=== PATIENT | male | born 1955 | race Caucasian/White ===

== ENCOUNTER 2016-11-25 19:07 | Inpatient (IN) ==
[2016-11-25] MEDS ORDERED: 0.9 % Sodium Chloride 1,000 ML IVC ONE (19:37)
--- NOTE | 2016-11-25 19:54 | Emergency Department Note ---
Disposition Clinical Impression: Seizure Fall Qualifiers: Encounter type: initial encounter Qualified Code(s): W19.XXXA - Unspecified fall, initial encounter Traumatic brain injury Qualifiers: Encounter type: subsequent encounter Loss of consciousness presence/duration: without LOC Qualified Code(s): S06.9X0D - Unspecified intracranial injury without loss of consciousness, subsequent encounter Altered mental status Qualifiers: Altered mental status type: stupor Qualified Code(s): R40.1 - Stupor UTI (urinary tract infection) Qualifiers: Urinary tract infection type: acute cystitis Hematuria presence: without hematuria Qualified Code(s): N30.00 - Acute cystitis without hematuria Disposition: Admitted As Inpatient Condition: Good Referrals: NO,PCP [Non-Partnered Physician] - Forms: ED Satisfaction Letter Time of Disposition: 22:24 Altered Mental Status HPI - General Chief Complaint: ED Altered Mental Status Stated Complaint: Decreased LOC Time Seen by Provider: 11/25/16 19:34 Source: EMS Mode of arrival: EMS Limitations: altered mental status Nursing Notes Reviewed: Yes Vital Signs Reviewed: Yes - History of Present Illness HPI Narrative: Patient presents emergency room by EMS for evaluation of altered mentation. Decreased responsiveness his ECF today. Family was concerned because he had focal seizure like activities never had seizures before. Otherwise patient is no distress at this point in presentation stable vital signs on arrival. EMS had no complications during transport. Blood pressure heart rate and blood glucose were all normal. Patient has fallen several times in the last week according to the EMS transportation MD complaint: altered mental status Onset (ago): week(s) Timing confirmed by: family member Pain Severity: mild Consistency of Symptoms: waxing and waning Context: unknown Associated symptoms: Reports: denies other symptoms - Related Data Home Medications Medication Instructions Recorded Confirmed Amantadine [Symmetrel] 100 mg PO BID 02/24/16 11/25/16 Aspirin [Lo-Dose Aspirin EC] 81 mg PO DAILY 02/24/16 11/25/16 Atomoxetine [Strattera] 40 mg PO DAILY 02/24/16 11/25/16 Divalproex (12 HR) [Depakote (12 500 mg PO BID 02/24/16 11/25/16 HR)] Docusate [Colace] 100 mg PO DAILY 02/24/16 11/25/16 Donepezil [Aricept] 10 mg PO HS 02/24/16 11/25/16 LevETIRAcetam [Roweepra] 500 mg PO Q12H 02/24/16 11/25/16 Lisinopril [Zestril] 5 mg PO DAILY 02/24/16 11/25/16 Metformin HCl [Glucophage] 1,000 mg PO BID 02/24/16 11/25/16 Pioglitazone HCl [Actos] 30 mg PO DAILY 02/24/16 11/25/16 Simvastatin [Zocor] 40 mg PO QPM 02/24/16 11/25/16 Venlafaxine HCl [Venlafaxine HCl 150 mg PO DAILY 02/24/16 11/25/16 ER] clonazePAM [Klonopin] 0.5 mg PO BID 02/24/16 11/25/16 Acetaminophen [Tylenol] 650 mg PO Q6HR PRN 11/25/16 11/25/16 Calcium Carbonate/Vitamin D3 1 each PO TID 11/25/16 11/25/16 [Calcium 600 + Vit D Softgel] Ciprofloxacin [Cipro] 500 mg PO BID 11/25/16 11/25/16 Glucagon,Human Recombinant 1 mg IJ AD PRN MDD 2MG 11/25/16 11/25/16 [Glucagon Emergency Kit] HYDROcodone/Acet 5/325 mg [[place] 1 tab PO Q4-6H PRN 11/25/16 11/25/16 5-325 mg] Linagliptin [Tradjenta] 5 mg PO DAILY 11/25/16 11/25/16 Linezolid [Zyvox] 600 mg PO BID 11/25/16 11/25/16 Magnesium Hydroxide [Milk of 30 ml PO DAILY PRN 11/25/16 11/25/16 Magnesia] Na Phos,M-B/Na Phos,Di-Ba [Fleet 230 ml RC Q48H PRN 11/25/16 11/25/16 Enema Extra] Zolpidem Tartrate 5 mg PO HS 11/25/16 11/25/16 levoFLOXacin [Levofloxacin] 500 mg PO DAILY 11/25/16 11/25/16 Allergies Allergy/AdvReac Type Severity Reaction Status Date / Time Penicillins Allergy Anaphylaxis Verified 11/25/16 21:11 PAPER TAPE AdvReac See Uncoded 11/25/16 21:11 Comments All systems ED: reviewed and negative except as stated. Review of Systems: As Per HPI Limitations: ROS unobtainable due to patients medical condition Eyes: Denies: eye discharge Respiratory: Denies: cough Past Medical History - Past Medical History Attestation: Yes The following information was validated with the patient. Source: patient Medical history: Reports: dementia, diabetes, hyperlipidemia, hypertension, other Surgical history: Reports: no surgical history Psychiatric history: Reports: anxiety, depression, other - Social History Smoking Status: Former smoker Smokeless Tobacco Status: No Alcohol use: Reports: none Drug use: Reports: none Physical Exam - General Limitations: altered mental status General appearance: other - Head Head exam: atraumatic, normocephalic, normal inspection - ENT ENT exam: normal exam, normal oropharynx - Neck Neck exam: Present: normal inspection - Chest Chest inspection: Present: normal inspection, symmetric chest wall rise - Respiratory Respiratory exam: Present: normal lung sounds bilaterally. Absent: respiratory distress, wheezes, accessory muscle use - Cardiovascular Cardiovascular exam: Present: regular rate, normal rhythm, normal heart sounds - Abdominal Exam Abdominal exam: Present: soft, Non-Tender, normal bowel sounds. Absent: tenderness, distention, guarding, rebound, rigidity, Mendez's sign, Rovsing's sign, tenderness at McBurney's Point - Extremities Exam Extremities exam: Present: normal inspection, full ROM, normal capillary refill. Absent: tenderness - Neurological Exam Neurological exam: Present: alert, oriented X3 - Skin Skin exam: Present: warm, dry, intact, normal color Course Course Narrative: Patient seen and examined the time of arrival by EMS. See history of present illness. 60-year-old male presents from [facility] for evaluation of altered mental status, somnolence, seizure-like activity. Gentleman is in the long term secondary to traumatic brain injury. Vital signs reviewed on presentation are stable. Accu-Chek in transit was normal. Patient family is at the bedside now and described normal presentation except for somnolence and withdrawn presentation this time. According to the nursing facility they were describing grandma-like seizure. Patient has no seizure history this point despite to traumatic brain injuries. On my physical exam on presentation head is atraumatic type was recorded on reactive to light. Oropharynx is patent but slightly dry mucous membranes. Trachea is midline no stridor no trismus. Lungs are clear heart is regular abdomen is soft. Patient does withdraw to pain but is somnolent and does not follow commands directly. Abdomen is soft there is tenderness noted suprapubically. It was of a Rosenthal catheter in place secondary to urinary incontinence. Patient does withdrawal to pain in the lower extremities appears to have appropriate sensation. No signs of visible trauma this time over the posterior aspect of the torso and lower back. He has a bruise to the right upper extremity but no gross deformity or injury noted at this time. Patient was CT imaging of the head and neck as well as chest x-ray and CT the abdomen along with fluids pain medication etiology medication given at this time. Vital signs are otherwise been stable. Labs including CBC chemistry liver function testing lipase as well as urinalysis to be collected this time. Disposition pending treatment course - Reevaluation(s) Reevaluation #1: Patient had active grand mal seizure here in the emergency room at this time. Family is at the bedside. On 1 mg Ativan given at this point and the seizure resolved. Family called other family members to discuss if any seizure history as noted. According to them he had several episodes of seizure-like activity directly after his traumatic brain injury. Based on the symptoms that now I think these having breakthrough seizure secondary to his urinary tract infection. Ativan to be given as needed. Loading dose of Keppra ordered. First dose of Rocephin to be given at this time. Admission process to be completely for urinary tract infection causing seizure-like activity. Time: 22:22 Reevaluation #2: Patient reviewed and discussed with the hospitalist Dr. Bell.. Reviewed the presentation symptoms medical history as well as intervention here. Hepatitis at the patient for definitive management. No other recommendations at this time. Patient will be observed in the emergency room and admission process was completed. Patient is clinically stable at this time Time: 23:22 Vital Signs Temperature 97.6 F 11/25/16 19:09 Pulse Rate 94 11/25/16 19:09 Respiratory Rate 18 11/25/16 19:09 Blood Pressure 169/90 11/25/16 19:09 O2 Sat by Pulse Oximetry 93 11/25/16 19:09 Temperature 97.6 F 11/25/16 19:09 Pulse Rate 81 11/25/16 22:49 Respiratory Rate 18 11/25/16 22:49 Blood Pressure 139/74 07/27/17 22:49 O2 Sat by Pulse Oximetry 99 11/25/16 22:49 Oxygen Delivery Oxygen Delivery Room Air Altered Mental Status - MDM Narrative Medical decision making narrative: Confusion, somnolence - Medical Records Medical records reviewed: Yes I reviewed the patient's medical records. - Lab Data Lab results reviewed: Yes I reviewed the patient's lab results. Result diagrams: 11/25/16 20:06 11/25/16 20:06 Lab Results 11/25/16 11/25/16 11/25/16 Range/Units 20:06 20:06 20:06 WBC 12.2 H (4.3-11.1) K/mcL RBC 5.34 (4.19-5.50) M/mcL Hgb 14.2 (12.9-16.9) g/dL Hct 43.2 (37.5-50.1) % MCV 80.9 L (83.0-100.0) fL MCH 26.6 L (28.0-33.3) pg MCHC 32.9 (31.6-35.5) g/dL RDW 14.0 (11.5-14.5) % Plt Count 230 (140-400) K/mcL MPV 9.4 (9.4-12.4) fL Immature Gran % 1.3 (0-4) % Seg Neutrophils % 87.6 % Lymphocytes % 5.9 % Monocytes % 4.0 % Eosinophils % 0.7 % Basophils % 0.5 % Neutrophils # 10.7 H (1.6-8.9) K/mcL Lymphocytes # 0.7 (0.6-4.6) K/mcL Monocytes # 0.5 (0.0-1.3) K/mcL Eosinophils # 0.1 (0.0-0.6) K/mcL Basophils # 0.1 (0.0-0.2) K/mcL PT 12.9 H (9.4-12.1) Seconds INR 1.2 APTT 27.7 (26.0-36.0) Seconds Sodium 130 L (136-145) mEq/L Potassium 4.0 (3.5-4.5) mEq/L Chloride 98 (98-109) mEq/L Carbon Dioxide 21 (19-29) mEq/L BUN 15 (8-26) mg/dL Creatinine 0.82 (0.72-1.25) mg/dL Est GFR ( Amer) > 60 (> 60) Est GFR (Non-Af Amer) > 60 (> 60) BUN/Creatinine Ratio 18 (6-26) Glucose 161 H (70-99) mg/dL Calculated Osmolality 274 L (280-300) Calcium 9.2 (8.6-10.8) mg/dL Total Bilirubin 0.3 (0.2-1.2) mg/dL Direct Bilirubin 0.1 (0.0-0.5) mg/dL Indirect Bilirubin 0.2 (0.0-1.2) mg/dL AST 10 (5-34) Units/L ALT 8 (0-55) Units/L Alkaline Phosphatase 52 (38-126) Units/L Troponin I (0-0.03) ng/mL Serum Total Protein 7.4 (6.0-8.3) g/dL Albumin 4.0 (3.5-5.0) g/dL Globulin 3.4 (2.4-3.5) g/dL Albumin/Globulin Ratio 1.2 (1.1-2.2) TSH 3.470 (0.350-4.840) mcIU/mL Urine Color (Yellow) Urine Clarity (Clear) Urine pH (5.0-8.0) pH Units Ur Specific [place] (1.010-1.025) Urine Protein (Neg-Trace) mg/dL Urine Glucose (UA) (Normal) mg/dL Urine Ketones (Negative) mg/dL Urine Blood (Negative) Urine Nitrite (Negative) Urine Bilirubin (Negative) Urine Urobilinogen (Normal) mg/dL Ur Leukocyte Esterase (Negative) Urine Microscopic RBC (0-3) per hpf Urine Microscopic WBC (0-3) per hpf Ur Squamous Epith Cells (None-Few) per lpf Urine Bacteria (None-Few) per hpf Hyaline Casts (None-Few) per lpf Ur Culture Indicated? (NO) Salicylates < 5.0 L (15-30) mg/dL Urine Opiates Screen (Vaqdcq=455) ng/mL Acetaminophen 1.0 L (10-30) mcg/mL Ur Barbiturates Screen ([place]=533) ng/mL Ur Phencyclidine Scrn (Cutoff=25) ng/mL Ur Amphetamines Screen (Zvzztf=8165) ng/mL U Benzodiazepines Scrn (Pcapef=193) ng/mL Urine Cocaine Screen (Cutoff= 300) ng/mL U Marijuana (THC) Screen (Cutoff = 50) ng/mL Ethyl Alcohol < 10 (0-10) mg/dL 11/25/16 11/25/16 11/25/16 Range/Units 20:06 20:24 20:24 WBC (4.3-11.1) K/mcL RBC (4.19-5.50) M/mcL Hgb (12.9-16.9) g/dL Hct (37.5-50.1) % MCV (83.0-100.0) fL MCH (28.0-33.3) pg MCHC (31.6-35.5) g/dL RDW (11.5-14.5) % Plt Count (140-400) K/mcL MPV (9.4-12.4) fL Immature Gran % (0-4) % Seg Neutrophils % % Lymphocytes % % Monocytes % % Eosinophils % % Basophils % % Neutrophils # (1.6-8.9) K/mcL Lymphocytes # (0.6-4.6) K/mcL Monocytes # (0.0-1.3) K/mcL Eosinophils # (0.0-0.6) K/mcL Basophils # (0.0-0.2) K/mcL PT (9.4-12.1) Seconds INR APTT (26.0-36.0) Seconds Sodium (136-145) mEq/L Potassium (3.5-4.5) mEq/L Chloride (98-109) mEq/L Carbon Dioxide (19-29) mEq/L BUN (8-26) mg/dL Creatinine (0.72-1.25) mg/dL Est GFR ( Amer) (> 60) Est GFR (Non-Af Amer) (> 60) BUN/Creatinine Ratio (6-26) Glucose (70-99) mg/dL Calculated Osmolality (280-300) Calcium (8.6-10.8) mg/dL Total Bilirubin (0.2-1.2) mg/dL Direct Bilirubin (0.0-0.5) mg/dL Indirect Bilirubin (0.0-1.2) mg/dL AST (5-34) Units/L ALT (0-55) Units/L Alkaline Phosphatase (38-126) Units/L Troponin I 0.03 (0-0.03) ng/mL Serum Total Protein (6.0-8.3) g/dL Albumin (3.5-5.0) g/dL Globulin (2.4-3.5) g/dL Albumin/Globulin Ratio (1.1-2.2) TSH (0.350-4.840) mcIU/mL Urine Color Yellow (Yellow) Urine Clarity Cloudy A (Clear) Urine pH 6.0 (5.0-8.0) pH Units Ur Specific [place] 1.021 (1.010-1.025) Urine Protein 100 H (Neg-Trace) mg/dL Urine Glucose (UA) 250 H (Normal) mg/dL Urine Ketones 15 H (Negative) mg/dL Urine Blood Trace H (Negative) Urine Nitrite Negative (Negative) Urine Bilirubin Negative (Negative) Urine Urobilinogen Normal (Normal) mg/dL Ur Leukocyte Esterase Negative (Negative) Urine Microscopic RBC 3-5 H (0-3) per hpf Urine Microscopic WBC 3-5 H (0-3) per hpf Ur Squamous Epith Cells Many H (None-Few) per lpf Urine Bacteria Moderate H (None-Few) per hpf Hyaline Casts None Seen (None-Few) per lpf Ur Culture Indicated? NO (NO) Salicylates (15-30) mg/dL Urine Opiates Screen Positive H (Xmzouq=119) ng/mL Acetaminophen (10-30) mcg/mL Ur Barbiturates Screen Negative (Xdxngv=089) ng/mL Ur Phencyclidine Scrn Negative (Cutoff=25) ng/mL Ur Amphetamines Screen Negative (Yeqsgc=2368) ng/mL U Benzodiazepines Scrn Negative (Rvuyok=050) ng/mL Urine Cocaine Screen Negative (Cutoff= 300) ng/mL U Marijuana (THC) Screen Negative (Cutoff = 50) ng/mL Ethyl Alcohol (0-10) mg/dL - Radiology Data Radiology results reviewed: Yes I reviewed the patient's radiology results. CT imaging does not show any acute signs of intracranial bleed or pathology. Cervical spine shows no fractures. Abdomen is negative for acute pathology chest x-ray stable - EKG Data EKG attestation: Yes I reviewed and interpreted this EKG. EKG shows normal: sinus rhythm, axis, intervals, QRS complexes, ST-T waves Rate: normal Rhythm: NSR Voltage: c/w LVH When compared to previous EKG there are: no significant changes Interpretation: no acute changes, unchanged when compared to prior tracing (date ) TPA Checklist - LKW: 3-4.5 hrs Add. Warnings/Precautions Patient/family understanding: The patient/family members have been counseled and understood the risk, benefit , and alternatives of treatment. Critical Care Time Critical Care Time: Yes Total Critical Care Time: 35 Attestation: Critical care performed: Time is exclusive of separately billable procedures. Time includes: direct patient care, patient reassessment, coordination of patient care, interpretation of data (laboratory data, radiology data, and respiratory data), review of patient's medical records, medical consultation and documentation of patient care. Procedures included in critical care time: Procedures excluded from critical care time:
[2016-11-25 20:17] LABS: Basophils # 0.1 K/mcL (0.0-0.2); Basophils % 0.5 %; Eosinophils # 0.1 K/mcL (0.0-0.6); Eosinophils % 0.7 %; Hematocrit 43.2 % (37.5-50.1); Hemoglobin 14.2 g/dL (12.9-16.9); Immature Granulocytes % 1.3 % (0-4); Lymphocytes # 0.7 K/mcL (0.6-4.6); Lymphocytes % 5.9 %; Mean Corpuscular HGB Conc 32.9 g/dL (31.6-35.5); Mean Corpuscular Hemoglobin 26.6 pg (28.0-33.3); Mean Corpuscular Volume 80.9 fL (83.0-100.0); Mean Platelet Volume 9.4 fL (9.4-12.4); Monocytes # 0.5 K/mcL (0.0-1.3); Neutrophils # 10.7 K/mcL (1.6-8.9); Platelet Count 230 K/mcL (140-400); Red Blood Count 5.34 M/mcL (4.19-5.50); Segmented Neutrophils % 87.6 %
[2016-11-25 20:23] LABS: INR 1.2; Prothrombin Time 12.9 Seconds (9.4-12.1)
[2016-11-25 20:26] LABS: Activated Partial Thrombo Time 27.7 Seconds (26.0-36.0)
[2016-11-25 20:31] LABS: Bilirubin,Urine Negative (Negative); Blood,Urine Trace (Negative); Clarity,Urine Cloudy (Clear); Color,Urine Yellow (Yellow); Glucose,Urine (UA) 250 mg/dL (Normal); Ketones,Urine 15 mg/dL (Negative); Leukocyte Esterase,Urine Negative (Negative); Nitrite,Urine Negative (Negative); Protein,Urine 100 mg/dL (Neg-Trace); Specific Gravity,Urine 1.021 (1.010-1.025); Urobilinogen,Urine Normal (Normal)
[2016-11-25 20:32] LABS: Bacteria,Urine Moderate per hpf (None-Few); Hyaline Casts,Urine None Seen per lpf (None-Few); Squamous Epithelial Cell,Urine Many per lpf (None-Few)
[2016-11-25 20:33] LABS: Alanine Aminotransferase 8 Units/L (0-55); Albumin/Globulin Ratio 1.2 (1.1-2.2); Alkaline Phosphatase 52 Units/L (38-126); Aspartate Amino Transferase 10 Units/L (5-34); BUN/Creatinine Ratio 18 (6-26); Bilirubin,Direct 0.1 mg/dL (0.0-0.5); Bilirubin,Indirect 0.2 mg/dL (0.0-1.2); Bilirubin,Total 0.3 mg/dL (0.2-1.2); Blood Urea Nitrogen 15 mg/dL (8-26); Calcium 9.2 mg/dL (8.6-10.8); Carbon Dioxide 21 mEq/L (19-29); Chloride 98 mEq/L (98-109); Globulin 3.4 g/dL (2.4-3.5); Glucose 161 mg/dL (70-99); Osmolality,Calculated 274 (280-300); Sodium 130 mEq/L (136-145); Total Protein 7.4 g/dL (6.0-8.3); eGFR For African Americans > 60 (> 60); eGFR For Non-African Americans > 60 (> 60)
[2016-11-25 20:37] LABS: Amphetamine Screen,Urine Negative ng/mL (Cutoff=1000); Barbiturate Screen,Urine Negative ng/mL (Cutoff=200); Benzodiazepines Screen,Urine Negative ng/mL (Cutoff=200); Cannabinoid Screen,Urine Negative ng/mL (Cutoff = 50); Cocaine Screen,Urine Negative ng/mL (Cutoff= 300); Opiate Screen,Urine Positive ng/mL (Cutoff=300); Phencyclidine Screen,Urine Negative ng/mL (Cutoff=25)
[2016-11-25 20:38] LABS: Ethanol < 10 mg/dL (0-10); Salicylate < 5.0 mg/dL (15-30)
[2016-11-25] MEDS ORDERED: Ondansetron 4 MG/2 ML VIAL IVP ONE (21:21)
[2016-11-25] MEDS ORDERED: Naloxone 0.4 MG/ML INJ IVP ONE (22:07)
[2016-11-25] MEDS ORDERED: levETIRAcetam 1,000 MG in 0.9 % Sodium Chloride 100 ML IVPB ONE (22:09)
[2016-11-25] MEDS ORDERED: Sulfamethoxazole/Trimeth 10 ML in D5% in Water 500 ML IVPB STA (22:39)
[2016-11-25] MEDS ORDERED: *HR* LORazepam 2 MG/ML VIAL IVP ONE (22:58)
[2016-11-25 23:15] LABS: ABG Base Excess -1.7 mEq/L (-2.0 to 3.0); ABG Oxygen Saturation 95 % (95-98); ABG PCO2 38 mmHg (35-45); ABG PH 7.39 pH Units (7.32-7.45); ABG PO2 75 mmHg (85-104); ABG TCO2 24.2 mEq/L (20-26); Blood Gas FiO2 28 %
[2016-11-26] MEDS ORDERED: Acetaminophen 325 MG TABLET PO PRN ×2 (00:06→08:20)
[2016-11-26] MEDS ORDERED: *HR* HYDROcodone/Acet 5/325 mg TABLET PO PRN ×2 (00:06→08:20)
[2016-11-26] MEDS ORDERED: Ondansetron 4 MG/2 ML VIAL IVP ONE (00:18)
[2016-11-26] MEDS ORDERED: Ondansetron 4 MG/2 ML VIAL ONE ×2 (00:22→06:43)
[2016-11-26] MEDS ORDERED: Naloxone 0.4 MG/ML INJ IVP PRN (00:24)
[2016-11-26] MEDS ORDERED: 0.9 % Sodium Chloride 1,000 ML IVC SCH (00:30)
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
[2016-11-26] MEDS ORDERED: D5% in Water 1,000 ML IVC PRN ×2 (00:54→05:36)
[2016-11-26] MEDS ORDERED: Dextrose Gel 15 GM PO PRN ×2 (00:54)
[2016-11-26] MEDS ORDERED: *HR* Dextrose 50 % in Water (Syg) 50 ML SYRINGE IVP PRN (00:54)
[2016-11-26] MEDS: Meropenem 1,000 MG in 0.9 % Sodium Chloride Mini Bag 100 ML IVPB SCH ×2 (01:48→08:45)
[2016-11-26 04:39] LABS: Hematocrit 38.2 % (37.5-50.1); Hemoglobin 12.9 g/dL (12.9-16.9); Mean Corpuscular HGB Conc 33.8 g/dL (31.6-35.5); Mean Corpuscular Hemoglobin 27.2 pg (28.0-33.3); Mean Corpuscular Volume 80.4 fL (83.0-100.0); Mean Platelet Volume 9.9 fL (9.4-12.4); Platelet Count 231 K/mcL (140-400); Red Blood Count 4.75 M/mcL (4.19-5.50)
[2016-11-26 04:56] LABS: Alanine Aminotransferase 7 Units/L (0-55); Albumin 3.6 g/dL (3.5-5.0); Albumin/Globulin Ratio 1.2 (1.1-2.2); Alkaline Phosphatase 46 Units/L (38-126); Aspartate Amino Transferase 14 Units/L (5-34); BUN/Creatinine Ratio 17 (6-26); Bilirubin,Total 0.3 mg/dL (0.2-1.2); Blood Urea Nitrogen 12 mg/dL (8-26); Calcium 8.5 mg/dL (8.6-10.8); Carbon Dioxide 24 mEq/L (19-29); Chloride 97 mEq/L (98-109); Globulin 2.9 g/dL (2.4-3.5); Glucose 122 mg/dL (70-99); Osmolality,Calculated 267 (280-300); Potassium 4.2 mEq/L (3.5-4.5); Sodium 128 mEq/L (136-145); Total Protein 6.5 g/dL (6.0-8.3); eGFR For African Americans > 60 (> 60); eGFR For Non-African Americans > 60 (> 60)
[2016-11-26] MEDS ORDERED: Furosemide 40 MG/4 ML VIAL IVP ONE (05:39)
[2016-11-26] MEDS: Insulin LISPRO 300 UNITS/3 ML VIAL SQ SCH ×3 (06:32→18:37)
[2016-11-26] MEDS: *HR* Enoxaparin 40 MG/0.4 ML SYRINGE SQ SCH (06:33)
[2016-11-26] MEDS ORDERED: Insulin LISPRO 300 UNITS/3 ML VIAL SQ SCH ×2 (07:30→21:00)
[2016-11-26] MEDS: Ondansetron 4 MG/2 ML VIAL IVP PRN ×3 (08:44→21:42)
[2016-11-26] MEDS ORDERED: Calcium 600 + Vit D PO SCH (09:00)
[2016-11-26] MEDS ORDERED: Divalproex (12 HR) 500 MG TABLET PO SCH (09:00)
[2016-11-26] MEDS ORDERED: TRADJENTA 5 MG PO SCH (09:00)
[2016-11-26] MEDS ORDERED: levETIRAcetam 250 MG TABLET PO SCH (09:00)
[2016-11-26] MEDS: Valproic Acid INJ 500 MG in 0.9 % Sodium Chloride 100 ML IVPB SCH ×2 (09:30→21:30)
--- NOTE | 2016-11-26 10:19 | Internal Med Progress Note ---
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 - Unsure of baseline, no family present to provide further information at this time - Patient is alert and oriented 1 - Possible etiologies include post ictal versus infectious versus hyponatremic - Neurology has been consulted, appreciate recommendations - EEG has been ordered as well as a speech evaluation Qualifiers: Altered mental status type: stupor Qualified Code(s): R40.1 - Stupor (2) Seizures, post-traumatic Current Visit: Yes Status: Chronic Assessment and plan: - Reported history of seizures since admission, was recently at 2200 yesterday evening - Unsure if etiology is secondary to hyponatremia or if hyponatremia is secondary to seizures - Abated with 1 mg of Ativan - No further episodes of seizures today - Neurology consult, EEG as above -Continue home antiseizure medications (3) Hyponatremia Current Visit: Yes Status: Acute Assessment and plan: - Sodium on admission was 130, today at 128. - Sodium checks every 6 hours. All of therapy of 134 today maximum - Mildly hypovolemic - May be secondary to dehydration versus traumatic brain injury. Kidney function within normal limits - We will replenish as necessary (4) DVT prophylaxis Current Visit: No Status: Acute Assessment and plan: - Lovenox 40 - Time Spent With Patient 25 - 35 minutes - Subjective Interval history: This note is not for billing purposes. Patient was seen and examined at bedside this morning. He states he is very confused this morning and "I have no idea "this is answer to many of the questions asked about history of present illness. He is alert and oriented 1. He is able to deny any symptoms of chest pain, shortness of breath, dysuria, cough. No family is at bedside at this time to provide history. Reevaluation this afternoon with patient's sister revealed that patient is slightly more confused than normal, has had no known recent seizures. She does express concern about a lack of bowel movements. She is not the power of deputy attorney general, reportedly patient's son, Biju. Social work called the son and states that he is more comfortable with his father going back to [facility] upon discharge. - Constitutional Vitals: Temp Pulse Resp BP Pulse Ox 99.2 F 69 18 143/86 94 07/28/17 07:13 11/26/16 07:13 11/26/16 07:13 11/26/16 07:13 11/26/16 07:13 Exam: Gen.: Vitals noted. No acute distress. AAOx1. Confused HEENT: PERRL/EOMI, oropharynx clear, Normocephalic, atraumatic. Mildly dry mucous membranes Neck: Supple. No adenopathy. Cardiac: RRR, no murmur, +S1/S2 Pulmonary: CTA bilaterally, no wheezes, rales or rhonchi, equal chest expansion Abdomen: mildly distended, nontender, BS noted, no guarding Back: Nontender throughout. MSK: Unable to assess secondary to patient's refusal Extremities: no BLE edema, nontender calf, no cyanosis or clubbing Neuro: A&Ox1, moves all extremities, no focal deficits Psych: Appropriate mood and behavior Internal Medicine: Result - Labs CBC & Chem 7: 11/26/16 03:19 11/26/16 03:19 Labs: Short CBC 11/26/16 Range/Units 03:19 WBC 10.8 (4.3-11.1) K/mcL Hgb 12.9 (12.9-16.9) g/dL Hct 38.2 (37.5-50.1) % Plt Count 231 (140-400) K/mcL BMP 11/26/16 03:19 Sodium 128 L Potassium 4.2 Chloride 97 L Carbon Dioxide 24 BUN 12 Creatinine 0.70 L Glucose 122 H Calcium 8.5 L Liver Function 11/26/16 Range/Units 03:19 Total Bilirubin 0.3 (0.2-1.2) mg/dL AST 14 (5-34) Units/L ALT 7 (0-55) Units/L Alkaline Phosphatase 46 (38-126) Units/L Albumin 3.6 (3.5-5.0) g/dL - ABG Interpretation ABG results: ABG ABG pH 7.39 pH Units (7.32-7.45) 11/25/16 23:06 ABG pCO2 38 mmHg (35-45) 11/25/16 23:06 ABG pO2 75 mmHg (85-104) L 11/25/16 23:06 ABG O2 Saturation 95 % (95-98) 11/25/16 23:06 PT/INR, D-dimer PT 12.9 Seconds (9.4-12.1) H 11/25/16 20:06 Consult Discharge Plan - Plan Referrals: Darron Torres MD [Primary Care Provider] -
[2016-11-26] MEDS: Cholecalciferol (D-3) 1,000 UNIT TABLET PO SCH (11:11)
[2016-11-26] MEDS: Aspirin Enteric Coated 81 MG Tablet PO SCH (11:11)
[2016-11-26] MEDS: *HR* Pioglitazone 30 MG TABLET PO SCH (11:12)
[2016-11-26] MEDS: Venlafaxine XR (24 HR) 150 MG CAP.ER.24H PO SCH (11:46)
[2016-11-26] MEDS: clonazePAM 0.5 MG TABLET PO SCH ×2 (11:46→21:29)
--- NOTE | 2016-11-26 12:07 | EEG/EMG/Oth Biometrics Report ---
EEG Procedure Report Date of procedure: 11/26/16 EEG Procedure: Routine EEG Procedure Note: This EEG was acquired with standard international 1020 system with EKG recording. The background EEG activity was characterized by the presence of posterior dominant alpha rhythm with the best frequency up to 11 Hz.. The background activity was reactive to eye openings. Sleep stages were characterized by the presence of background fragmentation, vertex waves, K complexes, and sleep spindles. There are no electrographic seizures identified during this tracing. There are no epileptiform discharges and focal slowing noted during this recording. Photic stimulation produced no abnormalities. Hyperventilation procedure was not performed EKG tracing showed no significant cardiac dysrhythmia. Impression: This is essentially a normal awake and asleep EEG. Clinical Correlation: Normal EEGs, however, do not exclude epilepsy. Clinical correlation advised.
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
[2016-11-26] MEDS: Sennosides/Docusate Sodium TABLET PO SCH ×2 (15:43→21:29)
--- NOTE | 2016-11-26 15:58 | Event Note ---
Date of Encounter: 11/26/16 Time of Encounter: 10:50 This documentation is a co-sign of the resident physician's documentation, as for some reason, I am unable to addendum his note I examined this patient and my medical decision-making was reviewed with the Resident Physician on 11/26/16. I agree with the documented findings, disposition and treatment plan as described except to the extent set forth below. 60 M with TBI and anoxic brain injury, DM, Seizure disorder, admitted for management of breakthrough seizure, AMS and hyponatremia At time of initial review, patient was post-ictal, later in the afternoon, patient was back at his baseline He has no short term memory, and states "I have no idea to most questions" he is clinically stable at this time Physical exam: VSS, not in distress, no dysarthria, no facial paralysis, moves all limbs spontaneously, no pedal edema, abdomen is soft Labs and Imaging reviewed: Hyponatremia, Leukocytosis on admission, has resolved , EEG normal A/P: Breakthrough seizure, agree with neurology eval, low suspicion for meningitis, patient is improving Slowly correct Na, check q6h, goal is to correct by 4-6meq in 24 hrs. Give stool softener Rest of details as in resident's documentation
--- NOTE | 2016-11-26 16:14 | Electrocardiograph Report ---
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
--- NOTE | 2016-11-26 16:16 | Electrocardiograph Report ---
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
[2016-11-26] MEDS: levETIRAcetam 750 MG in 0.9 % Sodium Chloride 100 ML IVPB SCH (21:31)
[2016-11-27] MEDS: Insulin LISPRO 300 UNITS/3 ML VIAL SQ SCH ×3 (00:58→13:03)
[2016-11-27 03:39] LABS: Hematocrit 39.2 % (37.5-50.1); Hemoglobin 13.2 g/dL (12.9-16.9); Mean Corpuscular HGB Conc 33.7 g/dL (31.6-35.5); Mean Corpuscular Hemoglobin 27.3 pg (28.0-33.3); Mean Platelet Volume 9.2 fL (9.4-12.4); Platelet Count 187 K/mcL (140-400); Red Blood Count 4.84 M/mcL (4.19-5.50); Red Cell Distribution Width 14.2 % (11.5-14.5)
[2016-11-27 03:54] LABS: BUN/Creatinine Ratio 14 (6-26); Blood Urea Nitrogen 11 mg/dL (8-26); Calcium 8.9 mg/dL (8.6-10.8); Carbon Dioxide 26 mEq/L (19-29); Chloride 97 mEq/L (98-109); Glucose 124 mg/dL (70-99); Osmolality,Calculated 271 (280-300); Potassium 4.3 mEq/L (3.5-4.5); Sodium 130 mEq/L (136-145); eGFR For African Americans > 60 (> 60); eGFR For Non-African Americans > 60 (> 60)
[2016-11-27] MEDS: *HR* Enoxaparin 40 MG/0.4 ML SYRINGE SQ SCH (05:30)
[2016-11-27] MEDS: clonazePAM 0.5 MG TABLET PO SCH (09:11)
[2016-11-27] MEDS: Venlafaxine XR (24 HR) 150 MG CAP.ER.24H PO SCH (09:11)
[2016-11-27] MEDS: Cholecalciferol (D-3) 1,000 UNIT TABLET PO SCH (09:11)
[2016-11-27] MEDS: Sennosides/Docusate Sodium TABLET PO SCH (09:11)
[2016-11-27] MEDS: *HR* Pioglitazone 30 MG TABLET PO SCH (09:11)
[2016-11-27] MEDS: Valproic Acid INJ 500 MG in 0.9 % Sodium Chloride 100 ML IVPB SCH (09:12)
[2016-11-27] MEDS: Aspirin Enteric Coated 81 MG Tablet PO SCH (09:12)
[2016-11-27] MEDS: levETIRAcetam 750 MG in 0.9 % Sodium Chloride 100 ML IVPB SCH (09:12)
[2016-11-27 11:50] VITALS: BP 136/79
--- NOTE | 2016-11-27 12:01 | Discharge Summary ---
<Tano Dunham - Last Filed: 11/27/16 12:01> Date of Encounter: 11/27/16 Time of Encounter: 10:00 - Discharge Diagnosis (1) Seizures, post-traumatic Priority: Primary Status: Chronic (2) Altered mental status Priority: Secondary Status: Acute Qualifiers: Altered mental status type: stupor Qualified Code(s): R40.1 - Stupor (3) Hyponatremia Priority: Secondary Status: Acute (4) DVT prophylaxis Priority: Secondary Status: Acute - Discharge Medications Prescriptions: Divalproex (12 HR) [Depakote (12 HR)] 750 mg PO BID #14 tab Home Medications: Amantadine [Symmetrel] 100 mg PO BID 02/24/16 [History] Aspirin [Lo-Dose Aspirin EC] 81 mg PO DAILY 02/24/16 [History] Atomoxetine [Strattera] 40 mg PO DAILY 02/24/16 [History] Docusate [Colace] 100 mg PO DAILY 02/24/16 [History] Donepezil [Aricept] 10 mg PO HS 02/24/16 [History] LevETIRAcetam [Roweepra] 500 mg PO Q12H 02/24/16 [History] Lisinopril [Zestril] 5 mg PO DAILY 02/24/16 [History] Metformin HCl [Glucophage] 1,000 mg PO BID 02/24/16 [History] Pioglitazone HCl [Actos] 30 mg PO DAILY 02/24/16 [History] Simvastatin [Zocor] 40 mg PO QPM 02/24/16 [History] Venlafaxine HCl [Venlafaxine HCl ER] 150 mg PO DAILY 02/24/16 [History] clonazePAM [Klonopin] 0.5 mg PO BID 02/24/16 [History] Acetaminophen [Tylenol] 650 mg PO Q6HR PRN 11/25/16 [History] Calcium Carbonate/Vitamin D3 [Calcium 600 + Vit D Softgel] 1 each PO TID [History] Ciprofloxacin [Cipro] 500 mg PO BID 11/25/16 [History] Glucagon,Human Recombinant [Glucagon Emergency Kit] 1 mg IJ AD PRN MDD 2MG 11/25 [History] HYDROcodone/Acet 5/325 mg [[place] 5-325 mg] 1 tab PO Q4-6H PRN 11/25/16 [History] Linagliptin [Tradjenta] 5 mg PO DAILY 11/25/16 [History] Linezolid [Zyvox] 600 mg PO BID 11/25/16 [History] Magnesium Hydroxide [Milk of Magnesia] 30 ml PO DAILY PRN 11/25/16 [History] Na Phos,M-B/Na Phos,Di-Ba [Fleet Enema Extra] 230 ml RC Q48H PRN 11/25/16 [ History] Zolpidem Tartrate 5 mg PO HS 11/25/16 [History] levoFLOXacin [Levofloxacin] 500 mg PO DAILY 11/25/16 [History] Divalproex (12 HR) [Depakote (12 HR)] 750 mg PO BID #14 tab 11/27/16 [Rx] Allergies/Adverse Reactions: Allergies Penicillins Allergy (Verified 11/25/16 21:11) Anaphylaxis PAPER TAPE Adverse Reaction (Uncoded 11/25/16 21:11) See Comments PER [facility] LIST Date of admission: 11/26/16 00:26 Primary care physician: Darron Torres MD Consults: 11/26/16 00:35 Consult to Neurology [CONS] Routine Consulting Provider: [facility] Reason for Consult: recurrent seizure. has UTI Call Completed: No 11/26/16 05:26 Consult to Speech Therapy [CONS] Routine Comment: Evaluate, develop and implement POC Reason for Consult: concerns for aspiration risk Call Completed: No 11/26/16 11:26 Consult to Process Development Manager [CONS] Routine Reason for SW Consult: From F 11/26/16 11:44 Consult to Interpret Exam [CONS] Routine Consulting Provider: Michael Evans Consult to Interpret Exam: Interpret EEG Discharging clinician: Tano Dunham Anticipated date of discharge: 11/27/16 - Patient Status Disposition: Transfer SNF Condition: Fair Functional capacity at discharge: uses cane/walker Overall status at discharge: patient is progressing back to baseline - Discharge Instructions Follow Up With: Darron Torres MD [Primary Care Provider] - (Patient from [facility]) Additional Instructions: Please follow up with your primary care physician and continue to take our medications. - Diet and Activity Activity: as per physical therapy, resume usual activities as tolerated Diet: advance to your usual diet Hospital course: Mr. Kady is a 60 year old male who presented from [facility] for decreased responsiveness and the family was concerned about a focal seizure which he has not had in many years. He has a PMHx of TBI, anoxic brain injury, diabetes, HLD, HTN, anxiety, depression. Patient has no short term memory per family and was not able to describe what happened responding to most questions with "I have no idea". He did not appear in distress and was not noted to be incontinent. In the ED, vital signs were stable and the patient was reportedly at his baseline except for somnolence and withdrawn presentation. Labs were significant for WBC of 12.2, Na of 130, Glucose of 161, calculated osmolalit of 274. TSH was wnl and urine drug screen was negative except for known opiates. UA was negative for infection. CT head, CT cervical spine, CT abdomen, and CXR were all negative for acute pathology. Patient was started on meropenem for concern of infection given recent home medications of linezolid and cipro. In the ED, patient had a grand mal seizure which subsided after 1 mg of Ativan. Patient was admitted to medicine service with a diagnosis of seizure with TBI, hyponatremia. During course of hospital stay, patient was evaluated by neurology and had an EEG performed which showed no acute changes. Keppra was increased to 750 mg BID from home dose of 500 mg BID. Patient is reportedly back at baseline per family and neurologist who knows the patient well. Labs remained stable. He has no complaints. Patient's hyponatremia remains stable and he was given fluids and 1 dose of Na tabs. Valproic acid level was subtherapeutic, however we will no adjust the dose at this time. He will be discharged back to [facility] in stable condition and instructed to follow up with his PCP/ neurologist for further management. - Time Spent with Patient Total time spent providing and/or coordinating discharge services:40 mins - Constitutional Vitals: Temp Pulse Resp BP Pulse Ox 98.4 F 67 15 136/79 98 11/27/16 11:46 11/27/16 11:46 11/27/16 11:46 11/27/16 11:46 11/27/16 11:46 Exam: Gen.: Vitals noted. No acute distress. AAOx1. confused at baseline. HEENT: PERRL/EOMI, oropharynx clear, Normocephalic, atraumatic. Mildly dry mucous membranes Neck: Supple. No adenopathy. Cardiac: RRR, no murmur, +S1/S2 Pulmonary: CTA bilaterally, no wheezes, rales or rhonchi, equal chest expansion Abdomen: mildly distended, nontender, BS noted, no guarding Back: Nontender throughout. MSK: Unable to assess secondary to patient's refusal Extremities: no BLE edema, nontender calf, no cyanosis or clubbing Neuro: A&Ox1, moves all extremities, no focal deficits Psych: Appropriate mood and behavior <Navin Childers T - Last Filed: 11/27/16 15:59> Date of Encounter: 11/27/16 Date of admission: 11/26/16 00:26 Primary care physician: Darron Torres MD Consults: 11/26/16 00:35 Consult to Neurology [CONS] Routine Consulting Provider: [facility] Reason for Consult: recurrent seizure. has UTI Call Completed: No 11/26/16 05:26 Consult to Speech Therapy [CONS] Routine Comment: Evaluate, develop and implement POC Reason for Consult: concerns for aspiration risk Call Completed: No 11/26/16 11:26 Consult to Process Development Manager [CONS] Routine Reason for SW Consult: From ECF 11/26/16 11:44 Consult to Interpret Exam [CONS] Routine Consulting Provider: Michael Evans Consult to Interpret Exam: Interpret EEG Hospital course: Mr. Hillman is a 60 year old male - Time Spent with Patient Total time spent providing and/or coordinating discharge services: - Constitutional Vitals: Temp Pulse Resp BP Pulse Ox 98.4 F 67 15 136/79 98 11/27/16 11:46 11/27/16 11:46 11/27/16 11:46 11/27/16 11:46 11/27/16 11:46 - Attending Attestation I examined this patient and my medical decision-making was reviewed with the Resident Physician on 11/27/16. I agree with the documented findings, disposition and treatment plan as described except to the extent set forth below. 60 M with TBI and anoxic brain injury, DM, Seizure disorder, admitted for management of breakthrough seizure, AMS and hyponatremia At time of initial review, patient is back to his baseline Denies new complains fixated on his TV he is clinically stable at this time valproic acid level is subtherapeutic, will not adjust Physical exam: VSS, not in distress, no dysarthria, no facial paralysis, moves all limbs spontaneously, no pedal edema, abdomen is soft Labs and Imaging reviewed: Hyponatremia, Leukocytosis on admission, has resolved , EEG normal A/P: Breakthrough seizure, stable for discharge Rest of details as in resident physician's documentation
--- NOTE | 2016-11-27 12:26 | Physician Discharge Referral ---
ExtendedCare Referral Info Transfer To: [facility] Provider in Charge after Transfer: PCP Institutional Level of Care: Skilled - Diagnosis (1) Seizures, post-traumatic Priority: Primary Status: Resolved (2) Altered mental status Priority: Secondary Status: Resolved (3) Hyponatremia Priority: Secondary Status: Acute (4) DVT prophylaxis Priority: Secondary Status: Acute Prognosis: Fair Aware of Diagnosis: Family Aware of Prognosis: Family - Transfer Medications Prescriptions: Divalproex (12 HR) [Depakote (12 HR)] 750 mg PO BID #14 tab Home Medications: Amantadine [Symmetrel] 100 mg PO BID 02/24/16 [History] Aspirin [Lo-Dose Aspirin EC] 81 mg PO DAILY 02/24/16 [History] Atomoxetine [Strattera] 40 mg PO DAILY 02/24/16 [History] Docusate [Colace] 100 mg PO DAILY 02/24/16 [History] Donepezil [Aricept] 10 mg PO HS 02/24/16 [History] LevETIRAcetam [Roweepra] 500 mg PO Q12H 02/24/16 [History] Lisinopril [Zestril] 5 mg PO DAILY 02/24/16 [History] Metformin HCl [Glucophage] 1,000 mg PO BID 02/24/16 [History] Pioglitazone HCl [Actos] 30 mg PO DAILY 02/24/16 [History] Simvastatin [Zocor] 40 mg PO QPM 02/24/16 [History] Venlafaxine HCl [Venlafaxine HCl ER] 150 mg PO DAILY 02/24/16 [History] clonazePAM [Klonopin] 0.5 mg PO BID 02/24/16 [History] Acetaminophen [Tylenol] 650 mg PO Q6HR PRN 11/25/16 [History] Calcium Carbonate/Vitamin D3 [Calcium 600 + Vit D Softgel] 1 each PO TID [History] Ciprofloxacin [Cipro] 500 mg PO BID 11/25/16 [History] Glucagon,Human Recombinant [Glucagon Emergency Kit] 1 mg IJ AD PRN MDD 2MG 11/25 [History] HYDROcodone/Acet 5/325 mg [[place] 5-325 mg] 1 tab PO Q4-6H PRN 11/25/16 [History] Linagliptin [Tradjenta] 5 mg PO DAILY 11/25/16 [History] Linezolid [Zyvox] 600 mg PO BID 11/25/16 [History] Magnesium Hydroxide [Milk of Magnesia] 30 ml PO DAILY PRN 11/25/16 [History] Na Phos,M-B/Na Phos,Di-Ba [Fleet Enema Extra] 230 ml RC Q48H PRN 11/25/16 [ History] Zolpidem Tartrate 5 mg PO HS 11/25/16 [History] levoFLOXacin [Levofloxacin] 500 mg PO DAILY 11/25/16 [History] Divalproex (12 HR) [Depakote (12 HR)] 750 mg PO BID #14 tab 11/27/16 [Rx] Allergies/Adverse Reactions: Allergies Penicillins Allergy (Verified 11/25/16 21:11) Anaphylaxis PAPER TAPE Adverse Reaction (Uncoded 11/25/16 21:11) See Comments PER ECF LIST - Respiratory Orders Smoking Cessation: Smoking cessation has been advised. For more information, call the [place] Tobacco Quit Line at 9-819-MBBP-NOW. - Rehabiliation Orders Rehab Potential: Fair Rehab Orders: Evaluation for Physical Therapy, Evaluation for Occupational Therapy - Diet Orders Regular, No Concentrated Sweets CERTIFICATION: I certify that the transfer of the above named patient to an Extended Care Facility is necessary for the continuing treatment of the diagnosis listed. The above information is true and accurate reflection of patient's current condition. Confidential - Redisclosure prohibited without a patient's written consent.
== END 2016-11-27 13:00 | DRG 101 ==
LOC: 2ANU 19:07 → EMEROO 19:07 → 2ANU 11-26 00:29
PROVIDERS: ADMIT Internal Medicine; ATTEND Internal Medicine

== ENCOUNTER 2019-11-02 14:47 | Inpatient (IN) ==
[2019-11-02] MEDS ORDERED: 0.9 % Sodium Chloride 1,000 ML IVC ONE (15:03)
[2019-11-02 15:38] LABS: INR 1.2; Prothrombin Time 13.3 Seconds (9.4-12.1)
[2019-11-02 15:40] LABS: Basophils # 0.1 K/mcL (0.0-0.2); Basophils % 0.6 %; Eosinophils # 0.1 K/mcL (0.0-0.6); Eosinophils % 0.8 %; Hematocrit 34.8 % (37.5-50.1); Hemoglobin 11.5 g/dL (12.9-16.9); Immature Granulocytes % 0.8 % (0-4); Lymphocytes # 1.2 K/mcL (0.6-4.6); Lymphocytes % 13.8 %; Mean Corpuscular Hemoglobin 29.6 pg (28.0-33.3); Mean Corpuscular Volume 89.5 fL (83.0-100.0); Mean Platelet Volume 9.2 fL (9.4-12.4); Monocytes # 0.7 K/mcL (0.0-1.3); Monocytes % 8.1 %; Neutrophils # 6.5 K/mcL (1.6-8.9); Platelet Count 177 K/mcL (140-400); Red Blood Count 3.89 M/mcL (4.19-5.50); Red Cell Distribution Width 13.4 % (11.5-14.5); Segmented Neutrophils % 75.9 %; White Blood Count 8.6 K/mcL (4.3-11.1)
[2019-11-02 15:57] LABS: Alanine Aminotransferase 5 Units/L (7-52); Albumin 3.6 g/dL (3.5-5.7); Albumin/Globulin Ratio 1.3 (1.1-2.2); Alkaline Phosphatase 46 Units/L (34-104); Aspartate Amino Transferase 8 Units/L (13-39); BUN/Creatinine Ratio 42 (6-26); Bilirubin,Direct 0.1 mg/dL (0.0-0.2); Bilirubin,Indirect 0.3 mg/dL (0.0-1.0); Bilirubin,Total 0.4 mg/dL (0.3-1.0); Blood Urea Nitrogen 27 mg/dL (8-23); Calcium 8.8 mg/dL (8.6-10.3); Carbon Dioxide 25 mEq/L (23-29); Chloride 98 mEq/L (98-107); Globulin 2.8 g/dL (2.4-3.5); Glucose 219 mg/dL (70-105); Osmolality,Calculated 284 (280-300); Potassium 3.9 mEq/L (3.5-5.1); Sodium 131 mEq/L (136-145); Total Protein 6.4 g/dL (6.4-8.9); Troponin I < 0.03 ng/mL (< 0.04); eGFR For African Americans > 60 (> 60); eGFR For Non-African Americans > 60 (> 60)
[2019-11-02 16:19] LABS: Bacteria,Urine Few per hpf (None-Few); Bilirubin,Urine Negative (Negative); Blood,Urine Negative (Negative); Budding Yeast,Urine Few per hpf (None Seen); Clarity,Urine Turbid (Clear); Color,Urine Yellow (Yellow); Glucose,Urine (UA) Normal (Normal); Ketones,Urine Trace mg/dL (Negative); Leukocyte Esterase,Urine Large (Negative); Mucus,Urine Many per lpf (None-Few); Nitrite,Urine Negative (Negative); Protein,Urine >=300 mg/dL (Neg-Trace); Specific Gravity,Urine 1.028 (1.010-1.025); Squamous Epithelial Cell,Urine Few per hpf (None-Few); Triple Phosphate Crystal,Urine Present; Urobilinogen,Urine Normal (Normal); WBC,Urine TNTC per hpf (0-3)
[2019-11-02] MEDS ORDERED: levoFLOXacin 750 MG/150 ML 750 MG/150 ML BAG IVPB ONE (17:43)
[2019-11-02] MEDS ORDERED: Cefepime HCl 1,000 MG in Water for inj. (sterile) 10 ML IVP STA (17:43)
[2019-11-02] MEDS ORDERED: Vancomycin 1,500 MG/265 ML IV.SOLN IVPB ONE (17:44)
[2019-11-02] MEDS ORDERED: Ondansetron 4 MG/2 ML VIAL IVP PRN (18:46)
[2019-11-02] MEDS ORDERED: Naloxone 0.4 MG/ML INJ IVP PRN (18:46)
[2019-11-02] MEDS ORDERED: D5% in Water 1,000 ML IVC PRN (18:50)
[2019-11-02] MEDS ORDERED: *HR* Dextrose 50 % in Water (Vial) 50 ML VIAL IVP PRN (18:50)
[2019-11-02] MEDS ORDERED: Dextrose Gel 15 GM/37.5 ML TUBE PO PRN ×2 (18:50)
[2019-11-02] MEDS: 0.9 % Sodium Chloride 1,000 ML IVC SCH (21:11)
[2019-11-02] MEDS: *HR* Heparin 5,000 UNIT/ML VIAL SQ SCH (21:12)
[2019-11-02] MEDS ORDERED: *HR* HYDROcodone/Acet 5/325 mg TABLET PO PRN (21:41)
[2019-11-03] MEDS: Cefepime HCl 1,000 MG in Water for inj. (sterile) 10 ML IVP SCH ×4 (00:55→23:29)
[2019-11-03] MEDS: levETIRAcetam 250 MG TABLET PO SCH ×3 (00:56→20:59)
[2019-11-03] MEDS: diazePAM 2 MG TABLET PO SCH ×4 (00:56→23:29)
[2019-11-03] MEDS: Insulin LISPRO 300 UNITS/3 ML VIAL SQ SCH ×4 (01:39→16:22)
[2019-11-03] MEDS: *HR* Heparin 5,000 UNIT/ML VIAL SQ SCH ×3 (05:50→20:58)
[2019-11-03] MEDS: 0.9 % Sodium Chloride 1,000 ML IVC SCH (05:50)
[2019-11-03] MEDS: Vancomycin 1,500 MG/265 ML IV.SOLN IVPB SCH ×2 (05:51→17:10)
[2019-11-03] MEDS: levoFLOXacin 750 MG/150 ML 750 MG/150 ML BAG IVPB SCH (08:16)
[2019-11-03] MEDS: Carbidopa/Levodopa ER 50/200 TABLET PO SCH ×2 (08:17→20:59)
[2019-11-03] MEDS: Aspirin Enteric Coated 81 MG Tablet PO SCH (08:17)
[2019-11-03] MEDS: ATOMOXETINE HCL 25 MG PO SCH (08:18)
[2019-11-03] MEDS: Divalproex (12 HR) 500 MG TABLET PO SCH ×2 (08:20→20:59)
[2019-11-03 10:26] LABS: Basophils # 0.1 K/mcL (0.0-0.2); Basophils % 0.8 %; Eosinophils % 0.3 %; Hematocrit 41.8 % (37.5-50.1); Hemoglobin 14.1 g/dL (12.9-16.9); Immature Granulocytes % 1.3 % (0-4); Lymphocytes # 0.7 K/mcL (0.6-4.6); Lymphocytes % 8.2 %; Mean Corpuscular HGB Conc 33.7 g/dL (31.6-35.5); Mean Corpuscular Hemoglobin 29.3 pg (28.0-33.3); Mean Corpuscular Volume 86.9 fL (83.0-100.0); Mean Platelet Volume 8.9 fL (9.4-12.4); Monocytes # 0.7 K/mcL (0.0-1.3); Neutrophils # 7.4 K/mcL (1.6-8.9); Platelet Count 215 K/mcL (140-400); Red Blood Count 4.81 M/mcL (4.19-5.50); Red Cell Distribution Width 13.2 % (11.5-14.5); Segmented Neutrophils % 81.4 %
[2019-11-03 10:40] LABS: BUN/Creatinine Ratio 33 (6-26); Blood Urea Nitrogen 14 mg/dL (8-23); Carbon Dioxide 25 mEq/L (23-29); Chloride 94 mEq/L (98-107); Glucose 203 mg/dL (70-105); Magnesium 1.5 mg/dL (1.6-2.6); Osmolality,Calculated 274 (280-300); Phosphorous 3.1 mg/dL (2.7-4.5); Potassium 3.4 mEq/L (3.5-5.1); Sodium 129 mEq/L (136-145); eGFR For African Americans > 60 (> 60); eGFR For Non-African Americans > 60 (> 60)
[2019-11-03] MEDS ORDERED: hydrALAZINE 25 MG TABLET PO PRN (11:06)
[2019-11-03] MEDS: lisinopriL 5 MG TABLET PO SCH (11:19)
[2019-11-03] MEDS: Sennosides/Docusate Sodium TABLET PO SCH ×2 (12:15→20:59)
[2019-11-03] MEDS: MetroNIDAZOLE 500 MG/100 ML 500 MG/100 ML BAG IVPB SCH ×2 (12:15→20:57)
[2019-11-03] MEDS: polyethylene glycoL 3350 17 GM POWD.PACK PO SCH ×2 (12:15→20:57)
[2019-11-03] MEDS: Primidone 50 MG TABLET PO SCH (20:59)
[2019-11-03 21:31] LABS: BUN/Creatinine Ratio 44 (6-26); Blood Urea Nitrogen 21 mg/dL (8-23); Calcium 9.1 mg/dL (8.6-10.3); Carbon Dioxide 22 mEq/L (23-29); Chloride 96 mEq/L (98-107); Glucose 278 mg/dL (70-105); Magnesium 1.9 mg/dL (1.6-2.6); Osmolality,Calculated 279 (280-300); Potassium 3.6 mEq/L (3.5-5.1); Sodium 128 mEq/L (136-145); eGFR For African Americans > 60 (> 60); eGFR For Non-African Americans > 60 (> 60)
[2019-11-04] MEDS: Insulin LISPRO 300 UNITS/3 ML VIAL SQ SCH ×4 (00:53→17:52)
[2019-11-04 01:38] LABS: Hematocrit 48.5 % (37.5-50.1); Hemoglobin 16.1 g/dL (12.9-16.9); Mean Corpuscular HGB Conc 33.2 g/dL (31.6-35.5); Mean Corpuscular Hemoglobin 28.8 pg (28.0-33.3); Mean Corpuscular Volume 86.6 fL (83.0-100.0); Mean Platelet Volume 9.3 fL (9.4-12.4); Platelet Count 358 K/mcL (140-400); Red Cell Distribution Width 13.4 % (11.5-14.5); White Blood Count 7.9 K/mcL (4.3-11.1)
[2019-11-04 01:54] LABS: BUN/Creatinine Ratio 46 (6-26); Blood Urea Nitrogen 26 mg/dL (8-23); Carbon Dioxide 20 mEq/L (23-29); Chloride 96 mEq/L (98-107); Glucose 296 mg/dL (70-105); Osmolality,Calculated 286 (280-300); Potassium 3.7 mEq/L (3.5-5.1); Sodium 130 mEq/L (136-145); eGFR For African Americans > 60 (> 60); eGFR For Non-African Americans > 60 (> 60)
[2019-11-04] MEDS: MetroNIDAZOLE 500 MG/100 ML 500 MG/100 ML BAG IVPB SCH ×3 (03:56→20:40)
[2019-11-04] MEDS ORDERED: Acetaminophen IV 1,000 MG/100 ML INFUS..BTL IVPB ONE (04:21)
[2019-11-04] MEDS: *HR* Heparin 5,000 UNIT/ML VIAL SQ SCH ×3 (05:25→20:56)
[2019-11-04] MEDS: Vancomycin 1,500 MG/265 ML IV.SOLN IVPB SCH (05:26)
[2019-11-04] MEDS ORDERED: Furosemide 40 MG/4 ML VIAL IVP ONE ×3 (07:21→15:00)
[2019-11-04] MEDS: polyethylene glycoL 3350 17 GM POWD.PACK PO SCH ×2 (08:05→20:40)
[2019-11-04] MEDS: Aspirin Enteric Coated 81 MG Tablet PO SCH (08:06)
[2019-11-04] MEDS: Sennosides/Docusate Sodium TABLET PO SCH ×2 (08:06→20:40)
[2019-11-04] MEDS: diazePAM 2 MG TABLET PO SCH ×2 (08:06→15:25)
[2019-11-04] MEDS: levETIRAcetam 250 MG TABLET PO SCH (08:07)
[2019-11-04] MEDS: lisinopriL 5 MG TABLET PO SCH (08:07)
[2019-11-04] MEDS: Cefepime HCl 1,000 MG in Water for inj. (sterile) 10 ML IVP SCH ×2 (08:07→15:16)
[2019-11-04] MEDS: levoFLOXacin 750 MG/150 ML 750 MG/150 ML BAG IVPB SCH (08:07)
[2019-11-04] MEDS: Carbidopa/Levodopa ER 50/200 TABLET PO SCH ×2 (08:09→20:41)
[2019-11-04] MEDS: ATOMOXETINE HCL 25 MG PO SCH (08:10)
[2019-11-04] MEDS: Divalproex (12 HR) 500 MG TABLET PO SCH ×2 (08:10→20:40)
[2019-11-04] MEDS ORDERED: Furosemide 40 MG/4 ML VIAL ONE (09:08)
[2019-11-04] MEDS ORDERED: Acetaminophen 325 MG TABLET PO PRN (11:14)
[2019-11-04] MEDS: Dexamethasone 10 MG/ML VIAL IVP SCH (13:30)
[2019-11-04 13:38] LABS: ABG Base Excess -1 mEq/L (-2 to 3); ABG HCO3 23 mEq/L (21-27); ABG Oxygen Saturation 97 % (95-98); ABG PCO2 34 mmHg (35-45); ABG PH 7.44 pH Units (7.32-7.45); ABG PO2 86 mmHg (85-104); ABG TCO2 24 mEq/L (20-26); Blood Gas VT 12 cc
[2019-11-04 18:17] LABS: Adenovirus Not Detected (Not Detect); Coronavirus 229E Not Detected (Not Detect); Coronavirus HKU1 Not Detected (Not Detect); Coronavirus NL63 Not Detected (Not Detect); Coronavirus OC43 Not Detected (Not Detect); Human Metapneumovirus Not Detected (Not Detect); Human Rhinovirus/Enterovirus Not Detected (Not Detect); Influenza A Subtype 2009 H1 Not Detected (Not Detect)
[2019-11-04 18:18] LABS: Bordetella Pertussis Not Detected (Not Detect); Chlamydophila pneumoniae Not Detected (Not Detect); Influenza B Not Detected (Not Detect); Mycoplasma pneumoniae Not Detected (Not Detect); Parainfluenza Virus 1 Not Detected (Not Detect); Parainfluenza Virus 2 Not Detected (Not Detect); Parainfluenza Virus 3 Not Detected (Not Detect); Parainfluenza Virus 4 Not Detected (Not Detect); Respiratory Syncytial Virus Not Detected (Not Detect)
[2019-11-04] MEDS ORDERED: diazePAM 10 MG/2 ML SYRINGE IVP PRN (18:19)
[2019-11-04] MEDS: Vancomycin 1,750 MG/517.5 ML IV.SOLN IVPB SCH (18:22)
[2019-11-04] MEDS: Primidone 50 MG TABLET PO SCH (20:40)
[2019-11-04] MEDS ORDERED: *HR* Metoprolol 5 MG/5 ML VIAL IVP ONE ×2 (22:00)
[2019-11-04] MEDS ORDERED: *HR* Heparin 5,000 UNIT/ML VIAL IVP PRN (22:09)
[2019-11-04] MEDS ORDERED: *HR* Heparin 5,000 UNIT/ML VIAL IVP ONE (22:09)
[2019-11-04] MEDS: DilTIAZem 50 MG/50 ML IV.SOLN IVC SCH (22:31)
[2019-11-04] MEDS: Heparin 25,000 UNIT/250 ML D5W 25,000 UNIT/250 ML IV.SOLN IVC SCH (22:31)
[2019-11-04 23:17] LABS: Hematocrit 37.1 % (37.5-50.1); Hemoglobin 12.4 g/dL (12.9-16.9); Mean Corpuscular HGB Conc 33.4 g/dL (31.6-35.5); Mean Corpuscular Hemoglobin 28.9 pg (28.0-33.3); Mean Corpuscular Volume 86.5 fL (83.0-100.0); Mean Platelet Volume 9.1 fL (9.4-12.4); Platelet Count 228 K/mcL (140-400); Red Blood Count 4.29 M/mcL (4.19-5.50); Red Cell Distribution Width 13.3 % (11.5-14.5); White Blood Count 7.8 K/mcL (4.3-11.1)
[2019-11-05] MEDS: Cefepime HCl 1,000 MG in Water for inj. (sterile) 10 ML IVP SCH ×2 (00:11→08:53)
[2019-11-05 00:13] LABS: BUN/Creatinine Ratio 65 (6-26); Blood Urea Nitrogen 46 mg/dL (8-23); Calcium 8.5 mg/dL (8.6-10.3); Carbon Dioxide 23 mEq/L (23-29); Chloride 102 mEq/L (98-107); Glucose 173 mg/dL (70-105); Osmolality,Calculated 294 (280-300); Phosphorous 3.3 mg/dL (2.7-4.5); Potassium 3.6 mEq/L (3.5-5.1); Sodium 134 mEq/L (136-145); eGFR For African Americans > 60 (> 60); eGFR For Non-African Americans > 60 (> 60)
[2019-11-05] MEDS: Insulin LISPRO 300 UNITS/3 ML VIAL SQ SCH ×5 (00:15→23:24)
[2019-11-05 00:27] LABS: INR 1.4; Prothrombin Time 16.3 Seconds (9.4-12.1)
[2019-11-05 00:36] LABS: Heparin anti-factor XA UFH 1.26 IU/mL (0.30-0.70)
[2019-11-05] MEDS: DilTIAZem 50 MG/50 ML IV.SOLN IVC SCH ×2 (02:45→21:43)
[2019-11-05] MEDS: MetroNIDAZOLE 500 MG/100 ML 500 MG/100 ML BAG IVPB SCH ×3 (04:18→20:31)
[2019-11-05] MEDS: Vancomycin 1,750 MG/517.5 ML IV.SOLN IVPB SCH (05:38)
[2019-11-05] MEDS: Dexamethasone 10 MG/ML VIAL IVP SCH (08:52)
[2019-11-05] MEDS: Aspirin Enteric Coated 81 MG Tablet PO SCH (08:54)
[2019-11-05] MEDS: Divalproex (12 HR) 500 MG TABLET PO SCH (08:54)
[2019-11-05] MEDS: levoFLOXacin 750 MG/150 ML 750 MG/150 ML BAG IVPB SCH (08:54)
[2019-11-05] MEDS: polyethylene glycoL 3350 17 GM POWD.PACK PO SCH ×2 (08:54→19:19)
[2019-11-05] MEDS: Carbidopa/Levodopa ER 50/200 TABLET PO SCH ×2 (08:55→19:19)
[2019-11-05] MEDS: ATOMOXETINE HCL 25 MG PO SCH (08:55)
[2019-11-05] MEDS: Sennosides/Docusate Sodium TABLET PO SCH ×2 (08:55→19:19)
[2019-11-05] MEDS: lisinopriL 5 MG TABLET PO SCH (08:55)
[2019-11-05 09:28] LABS: Hematocrit 33.8 % (37.5-50.1); Hemoglobin 11.3 g/dL (12.9-16.9); Mean Corpuscular HGB Conc 33.4 g/dL (31.6-35.5); Mean Corpuscular Hemoglobin 29.4 pg (28.0-33.3); Mean Platelet Volume 9.3 fL (9.4-12.4); Platelet Count 252 K/mcL (140-400); Red Blood Count 3.84 M/mcL (4.19-5.50); Red Cell Distribution Width 13.3 % (11.5-14.5); White Blood Count 8.8 K/mcL (4.3-11.1)
[2019-11-05 09:59] LABS: BUN/Creatinine Ratio 83 (6-26); Blood Urea Nitrogen 55 mg/dL (8-23); C-Reactive Protein > 300 mg/L (Less than 10); Carbon Dioxide 24 mEq/L (23-29); Chloride 104 mEq/L (98-107); Glucose 145 mg/dL (70-105); Lactate Dehydrogenase 181 Units/L (140-271); Osmolality,Calculated 298 (280-300); Potassium 3.8 mEq/L (3.5-5.1); Sodium 135 mEq/L (136-145); eGFR For African Americans > 60 (> 60); eGFR For Non-African Americans > 60 (> 60)
[2019-11-05 10:11] LABS: Ferritin 245 ng/mL (20-250)
[2019-11-05] MEDS: *HR* Heparin 5,000 UNIT/ML VIAL IVP PRN (10:14)
[2019-11-05 10:38] LABS: ABG Base Excess 1 mEq/L (-2 to 3); ABG HCO3 26 mEq/L (21-27); ABG Oxygen Saturation 95 % (95-98); ABG PCO2 40 mmHg (35-45); ABG PH 7.42 pH Units (7.32-7.45); ABG PO2 73 mmHg (85-104); ABG TCO2 27 mEq/L (20-26); Blood Gas Pressure Support 12 cm H2O
[2019-11-05] MEDS ORDERED: Perflutren Lipid Microsphere 1.3 ML in 0.9 % Sodium Chloride 8.7 ML IVP ONE (11:36)
[2019-11-05] MEDS ORDERED: Furosemide 40 MG/4 ML VIAL IVP ONE (11:36)
[2019-11-05] MEDS ORDERED: Potassium Chloride 40 MEQ, Lidocaine 1% 2 ML in 0.9 % Sodium Chloride 500 ML IVPB ONE (11:46)
[2019-11-05] MEDS: Valproic Acid INJ 500 MG in 0.9 % Sodium Chloride 100 ML IVPB SCH ×3 (13:15→23:09)
[2019-11-05] MEDS: Cefepime HCl 2,000 MG in Water for inj. (sterile) 20 ML IVP SCH ×2 (16:57→23:11)
[2019-11-05] MEDS: Vancomycin 2,000 MG/520 ML IV.SOLN IVPB SCH (18:09)
[2019-11-05] MEDS: Primidone 50 MG TABLET PO SCH (19:19)
[2019-11-05] MEDS: Heparin 25,000 UNIT/250 ML D5W 25,000 UNIT/250 ML IV.SOLN IVC SCH (20:24)
[2019-11-06] MEDS: MetroNIDAZOLE 500 MG/100 ML 500 MG/100 ML BAG IVPB SCH ×3 (03:14→20:29)
[2019-11-06 05:19] LABS: Hematocrit 30.7 % (37.5-50.1); Hemoglobin 10.1 g/dL (12.9-16.9); Mean Corpuscular HGB Conc 32.9 g/dL (31.6-35.5); Mean Corpuscular Hemoglobin 28.8 pg (28.0-33.3); Mean Corpuscular Volume 87.5 fL (83.0-100.0); Mean Platelet Volume 9.8 fL (9.4-12.4); Platelet Count 255 K/mcL (140-400); Red Blood Count 3.51 M/mcL (4.19-5.50); Red Cell Distribution Width 13.7 % (11.5-14.5); White Blood Count 7.7 K/mcL (4.3-11.1)
[2019-11-06] MEDS: Valproic Acid INJ 500 MG in 0.9 % Sodium Chloride 100 ML IVPB SCH ×4 (05:37→23:05)
[2019-11-06] MEDS: Insulin LISPRO 300 UNITS/3 ML VIAL SQ SCH ×3 (05:55→17:05)
[2019-11-06] MEDS: Vancomycin 2,000 MG/520 ML IV.SOLN IVPB SCH ×2 (06:38→17:32)
[2019-11-06 07:24] LABS: BUN/Creatinine Ratio 73 (6-26); Blood Urea Nitrogen 41 mg/dL (8-23); Carbon Dioxide 27 mEq/L (23-29); Chloride 109 mEq/L (98-107); Glucose 158 mg/dL (70-105); Osmolality,Calculated 307 (280-300); Sodium 142 mEq/L (136-145); eGFR For African Americans > 60 (> 60); eGFR For Non-African Americans > 60 (> 60)
[2019-11-06] MEDS: Cefepime HCl 2,000 MG in Water for inj. (sterile) 20 ML IVP SCH ×3 (07:48→22:57)
[2019-11-06] MEDS: Aspirin Enteric Coated 81 MG Tablet PO SCH ×2 (07:48→09:26)
[2019-11-06] MEDS: Sennosides/Docusate Sodium TABLET PO SCH ×3 (07:49→20:17)
[2019-11-06] MEDS: polyethylene glycoL 3350 17 GM POWD.PACK PO SCH ×3 (07:49→20:13)
[2019-11-06] MEDS: lisinopriL 5 MG TABLET PO SCH ×2 (07:49→09:32)
[2019-11-06] MEDS: Carbidopa/Levodopa ER 50/200 TABLET PO SCH ×3 (07:49→20:12)
[2019-11-06] MEDS: Heparin 25,000 UNIT/250 ML D5W 25,000 UNIT/250 ML IV.SOLN IVC SCH ×2 (07:49→15:18)
[2019-11-06] MEDS ORDERED: Furosemide 40 MG/4 ML VIAL IVP ONE (08:45)
[2019-11-06] MEDS ORDERED: Calcium Gluconate 1gm/50mL 1 GM/50 ML BAG IVPB PRN (09:08)
[2019-11-06] MEDS ORDERED: Potassium Phosphate 44 MEQ in 0.9 % Sodium Chloride 250 ML IVPB PRN (09:08)
[2019-11-06 09:38] LABS: C-Reactive Protein 169 mg/L (Less than 10); Ferritin 219 ng/mL (20-250)
[2019-11-06] MEDS ORDERED: E-Z-PAQUE (BARIUM SULF) SUSP 1 BOTTLE PO ONE (12:13)
[2019-11-06] MEDS ORDERED: E-Z-HD (BARIUM SULF) SUSPENSION PO ONE (12:13)
[2019-11-06] MEDS ORDERED: Aminoglycoside Consult 1 EACH MC ONE (15:29)
[2019-11-06] MEDS: DilTIAZem 50 MG/50 ML IV.SOLN IVC SCH ×2 (16:09→20:13)
[2019-11-06] MEDS: Primidone 50 MG TABLET PO SCH (20:12)
[2019-11-06] MEDS: *HR* Heparin 5,000 UNIT/ML VIAL IVP PRN (22:54)
[2019-11-07] MEDS: Insulin LISPRO 300 UNITS/3 ML VIAL SQ SCH ×4 (00:02→16:41)
[2019-11-07] MEDS: MetroNIDAZOLE 500 MG/100 ML 500 MG/100 ML BAG IVPB SCH ×3 (04:25→20:33)
[2019-11-07] MEDS: DilTIAZem 50 MG/50 ML IV.SOLN IVC SCH (04:35)
[2019-11-07] MEDS: Valproic Acid INJ 500 MG in 0.9 % Sodium Chloride 100 ML IVPB SCH ×2 (04:58→11:10)
[2019-11-07 06:19] LABS: Hematocrit 32.6 % (37.5-50.1); Hemoglobin 10.4 g/dL (12.9-16.9); Mean Corpuscular HGB Conc 31.9 g/dL (31.6-35.5); Mean Corpuscular Hemoglobin 29.2 pg (28.0-33.3); Mean Corpuscular Volume 91.6 fL (83.0-100.0); Mean Platelet Volume 9.5 fL (9.4-12.4); Platelet Count 292 K/mcL (140-400); Red Blood Count 3.56 M/mcL (4.19-5.50); Red Cell Distribution Width 13.7 % (11.5-14.5); White Blood Count 7.6 K/mcL (4.3-11.1)
[2019-11-07] MEDS: Vancomycin 2,000 MG/520 ML IV.SOLN IVPB SCH (06:24)
[2019-11-07 06:43] LABS: BUN/Creatinine Ratio 63 (6-26); Blood Urea Nitrogen 33 mg/dL (8-23); Carbon Dioxide 29 mEq/L (23-29); Chloride 108 mEq/L (98-107); Glucose 147 mg/dL (70-105); Osmolality,Calculated 308 (280-300); Potassium 3.8 mEq/L (3.5-5.1); Sodium 144 mEq/L (136-145); eGFR For African Americans > 60 (> 60); eGFR For Non-African Americans > 60 (> 60)
[2019-11-07 07:02] LABS: Ferritin 209 ng/mL (20-250)
[2019-11-07] MEDS: Cefepime HCl 2,000 MG in Water for inj. (sterile) 20 ML IVP SCH ×2 (07:30→15:06)
[2019-11-07] MEDS: Sennosides/Docusate Sodium TABLET PO SCH ×3 (07:31→20:33)
[2019-11-07] MEDS: polyethylene glycoL 3350 17 GM POWD.PACK PO SCH ×2 (08:02→20:33)
[2019-11-07] MEDS: Carbidopa/Levodopa ER 50/200 TABLET PO SCH ×2 (08:03→20:34)
[2019-11-07] MEDS: lisinopriL 5 MG TABLET PO SCH (08:03)
[2019-11-07] MEDS: Aspirin Enteric Coated 81 MG Tablet PO SCH (08:03)
[2019-11-07] MEDS ORDERED: Potassium Chloride 40 MEQ/200 ML BAG IVPB PRN (08:28)
[2019-11-07] MEDS ORDERED: Potassium Chloride Elixir 20 MEQ/15 ML UDC PO ONE (08:28)
[2019-11-07] MEDS ORDERED: Calcium Gluconate 1gm/50mL 1 GM/50 ML BAG IVPB PRN (08:28)
[2019-11-07] MEDS ORDERED: Potassium Phosphate 44 MEQ in 0.9 % Sodium Chloride 250 ML IVPB PRN (08:28)
[2019-11-07 08:48] LABS: C-Reactive Protein 99 mg/L (Less than 10)
[2019-11-07] MEDS: Furosemide 40 MG/4 ML VIAL IVP SCH ×2 (08:52→20:33)
[2019-11-07] MEDS: Heparin 25,000 UNIT/250 ML D5W 25,000 UNIT/250 ML IV.SOLN IVC SCH (09:32)
[2019-11-07] MEDS: DilTIAZem CD (24hr) 180 MG CAP.ER.24H PO SCH (10:52)
[2019-11-07] MEDS: levETIRAcetam 250 MG TABLET PO SCH (20:33)
[2019-11-07] MEDS: Divalproex (12 HR) 500 MG TABLET PO SCH (20:34)
[2019-11-07] MEDS: Primidone 50 MG TABLET PO SCH (20:34)
[2019-11-07] MEDS ORDERED: Insulin LISPRO 300 UNITS/3 ML VIAL SQ SCH (21:00)
[2019-11-08] MEDS: Cefepime HCl 2,000 MG in Water for inj. (sterile) 20 ML IVP SCH ×4 (01:09→23:26)
[2019-11-08 01:10] LABS: Hematocrit 35.3 % (37.5-50.1); Hemoglobin 11.7 g/dL (12.9-16.9); Mean Corpuscular HGB Conc 33.1 g/dL (31.6-35.5); Mean Corpuscular Hemoglobin 29.7 pg (28.0-33.3); Mean Corpuscular Volume 89.6 fL (83.0-100.0); Platelet Count 306 K/mcL (140-400); Red Blood Count 3.94 M/mcL (4.19-5.50); Red Cell Distribution Width 13.7 % (11.5-14.5)
[2019-11-08 01:30] LABS: Alanine Aminotransferase 6 Units/L (7-52); Albumin 3.2 g/dL (3.5-5.7); Albumin/Globulin Ratio 1.1 (1.1-2.2); Alkaline Phosphatase 43 Units/L (34-104); Aspartate Amino Transferase 12 Units/L (13-39); BUN/Creatinine Ratio 50 (6-26); Bilirubin,Total 0.3 mg/dL (0.3-1.0); Blood Urea Nitrogen 23 mg/dL (8-23); Carbon Dioxide 32 mEq/L (23-29); Chloride 104 mEq/L (98-107); Glucose 136 mg/dL (70-105); Magnesium 1.9 mg/dL (1.6-2.6); Osmolality,Calculated 302 (280-300); Phosphorous 3.4 mg/dL (2.7-4.5); Potassium 3.6 mEq/L (3.5-5.1); Sodium 143 mEq/L (136-145); Total Protein 6.2 g/dL (6.4-8.9); eGFR For African Americans > 60 (> 60); eGFR For Non-African Americans > 60 (> 60)
[2019-11-08 01:49] LABS: Lymphocytes # 1.8 K/mcL (0.6-4.6); Monocytes # 0.5 K/mcL (0.0-1.3); Neutrophils # 6.5 K/mcL (1.6-8.9); Platelet Estimate Normal (Normal)
[2019-11-08 01:50] LABS: Reactive Lymphocytes Present (Not Present)
[2019-11-08] MEDS: Heparin 25,000 UNIT/250 ML D5W 25,000 UNIT/250 ML IV.SOLN IVC SCH (03:24)
[2019-11-08] MEDS: MetroNIDAZOLE 500 MG/100 ML 500 MG/100 ML BAG IVPB SCH ×3 (05:07→20:45)
[2019-11-08] MEDS: Insulin LISPRO 300 UNITS/3 ML VIAL SQ SCH ×4 (07:51→20:59)
[2019-11-08] MEDS: polyethylene glycoL 3350 17 GM POWD.PACK PO SCH ×2 (08:15→20:55)
[2019-11-08] MEDS: Furosemide 40 MG/4 ML VIAL IVP SCH (08:16)
[2019-11-08] MEDS: Aspirin Enteric Coated 81 MG Tablet PO SCH (08:16)
[2019-11-08] MEDS: lisinopriL 5 MG TABLET PO SCH (08:17)
[2019-11-08] MEDS: levETIRAcetam 250 MG TABLET PO SCH ×2 (08:17→20:56)
[2019-11-08] MEDS: DilTIAZem CD (24hr) 180 MG CAP.ER.24H PO SCH (08:17)
[2019-11-08] MEDS: Sennosides/Docusate Sodium TABLET PO SCH ×2 (08:18→08:20)
[2019-11-08] MEDS: Carbidopa/Levodopa ER 50/200 TABLET PO SCH ×2 (08:18→20:57)
[2019-11-08] MEDS: Divalproex (12 HR) 500 MG TABLET PO SCH ×2 (08:19→20:55)
[2019-11-08] MEDS ORDERED: Acetaminophen 325 MG TABLET PO PRN (17:23)
[2019-11-08] MEDS ORDERED: Dextrose Gel 15 GM/37.5 ML TUBE PO PRN ×2 (17:23)
[2019-11-08] MEDS ORDERED: D5% in Water 1,000 ML IVC PRN (17:23)
[2019-11-08] MEDS ORDERED: hydrALAZINE 25 MG TABLET PO PRN (17:23)
[2019-11-08] MEDS ORDERED: *HR* Dextrose 50 % in Water (Vial) 50 ML VIAL IVP PRN (17:23)
[2019-11-08] MEDS ORDERED: Naloxone 0.4 MG/ML INJ IVP PRN (17:23)
[2019-11-08] MEDS ORDERED: *HR* HYDROcodone/Acet 5/325 mg TABLET PO PRN (17:23)
[2019-11-08] MEDS ORDERED: Ondansetron 4 MG/2 ML VIAL IVP PRN (17:23)
[2019-11-08] MEDS: *HR* Enoxaparin 80 MG/0.8 ML SYRINGE SQ SCH (18:06)
[2019-11-08] MEDS: Primidone 50 MG TABLET PO SCH (20:56)
[2019-11-09] MEDS: MetroNIDAZOLE 500 MG/100 ML 500 MG/100 ML BAG IVPB SCH ×3 (04:08→21:24)
[2019-11-09 05:31] LABS: Hematocrit 35.4 % (37.5-50.1); Hemoglobin 11.3 g/dL (12.9-16.9); Mean Corpuscular HGB Conc 31.9 g/dL (31.6-35.5); Mean Corpuscular Volume 90.8 fL (83.0-100.0); Mean Platelet Volume 8.7 fL (9.4-12.4); Platelet Count 278 K/mcL (140-400); Red Cell Distribution Width 13.9 % (11.5-14.5); White Blood Count 10.4 K/mcL (4.3-11.1)
[2019-11-09] MEDS: *HR* Enoxaparin 80 MG/0.8 ML SYRINGE SQ SCH ×2 (05:42→18:02)
[2019-11-09 05:46] LABS: BUN/Creatinine Ratio 49 (6-26); Blood Urea Nitrogen 24 mg/dL (8-23); Calcium 8.7 mg/dL (8.6-10.3); Carbon Dioxide 32 mEq/L (23-29); Chloride 105 mEq/L (98-107); Glucose 145 mg/dL (70-105); Osmolality,Calculated 303 (280-300); Potassium 4.2 mEq/L (3.5-5.1); Sodium 143 mEq/L (136-145); eGFR For African Americans > 60 (> 60); eGFR For Non-African Americans > 60 (> 60)
[2019-11-09 05:48] LABS: Magnesium 2.1 mg/dL (1.6-2.6); Phosphorous 3.3 mg/dL (2.7-4.5)
[2019-11-09] MEDS: Insulin LISPRO 300 UNITS/3 ML VIAL SQ SCH ×4 (07:32→21:26)
[2019-11-09] MEDS: Cefepime HCl 2,000 MG in Water for inj. (sterile) 20 ML IVP SCH ×3 (08:43→23:50)
[2019-11-09] MEDS: levETIRAcetam 250 MG TABLET PO SCH ×2 (08:44→21:25)
[2019-11-09] MEDS: DilTIAZem CD (24hr) 180 MG CAP.ER.24H PO SCH (08:44)
[2019-11-09] MEDS: Divalproex (12 HR) 500 MG TABLET PO SCH ×2 (08:45→21:25)
[2019-11-09] MEDS: Sennosides/Docusate Sodium TABLET PO SCH (08:45)
[2019-11-09] MEDS: Carbidopa/Levodopa ER 50/200 TABLET PO SCH ×2 (08:46→21:27)
[2019-11-09] MEDS: Aspirin Enteric Coated 81 MG Tablet PO SCH (08:46)
[2019-11-09] MEDS: lisinopriL 5 MG TABLET PO SCH (08:46)
[2019-11-09] MEDS: polyethylene glycoL 3350 17 GM POWD.PACK PO SCH ×2 (08:47→21:24)
[2019-11-09] MEDS: Primidone 50 MG TABLET PO SCH (21:25)
[2019-11-10 03:14] LABS: Hematocrit 36.3 % (37.5-50.1); Hemoglobin 11.6 g/dL (12.9-16.9); Mean Corpuscular Hemoglobin 29.4 pg (28.0-33.3); Mean Corpuscular Volume 91.9 fL (83.0-100.0); Mean Platelet Volume 8.9 fL (9.4-12.4); Platelet Count 276 K/mcL (140-400); Red Blood Count 3.95 M/mcL (4.19-5.50); Red Cell Distribution Width 13.9 % (11.5-14.5); White Blood Count 10.6 K/mcL (4.3-11.1)
[2019-11-10 03:18] LABS: INR 1.3; Prothrombin Time 14.7 Seconds (9.4-12.1)
[2019-11-10 03:33] LABS: BUN/Creatinine Ratio 37 (6-26); Blood Urea Nitrogen 19 mg/dL (8-23); Calcium 9.1 mg/dL (8.6-10.3); Carbon Dioxide 32 mEq/L (23-29); Chloride 106 mEq/L (98-107); Glucose 140 mg/dL (70-105); Osmolality,Calculated 303 (280-300); Potassium 4.2 mEq/L (3.5-5.1); Sodium 144 mEq/L (136-145); eGFR For African Americans > 60 (> 60); eGFR For Non-African Americans > 60 (> 60)
[2019-11-10] MEDS: MetroNIDAZOLE 500 MG/100 ML 500 MG/100 ML BAG IVPB SCH ×3 (05:19→20:02)
[2019-11-10] MEDS: *HR* Enoxaparin 80 MG/0.8 ML SYRINGE SQ SCH ×2 (05:21→17:10)
[2019-11-10] MEDS: DilTIAZem CD (24hr) 180 MG CAP.ER.24H PO SCH (07:53)
[2019-11-10] MEDS: polyethylene glycoL 3350 17 GM POWD.PACK PO SCH ×2 (07:53→20:06)
[2019-11-10] MEDS: Divalproex (12 HR) 500 MG TABLET PO SCH ×2 (07:53→20:06)
[2019-11-10] MEDS: Carbidopa/Levodopa ER 50/200 TABLET PO SCH ×2 (07:54→20:06)
[2019-11-10] MEDS: levETIRAcetam 250 MG TABLET PO SCH ×2 (07:54→20:06)
[2019-11-10] MEDS: Aspirin Enteric Coated 81 MG Tablet PO SCH (07:55)
[2019-11-10] MEDS: lisinopriL 5 MG TABLET PO SCH (07:55)
[2019-11-10] MEDS: Cefepime HCl 2,000 MG in Water for inj. (sterile) 20 ML IVP SCH ×2 (07:55→15:47)
[2019-11-10] MEDS: Sennosides/Docusate Sodium TABLET PO SCH (07:55)
[2019-11-10] MEDS: Insulin LISPRO 300 UNITS/3 ML VIAL SQ SCH ×4 (07:56→21:17)
[2019-11-10] MEDS: Primidone 50 MG TABLET PO SCH (20:06)
[2019-11-11] MEDS: Cefepime HCl 2,000 MG in Water for inj. (sterile) 20 ML IVP SCH ×3 (00:14→15:31)
[2019-11-11 01:51] LABS: BUN/Creatinine Ratio 35 (6-26); Blood Urea Nitrogen 18 mg/dL (8-23); Calcium 8.6 mg/dL (8.6-10.3); Carbon Dioxide 29 mEq/L (23-29); Chloride 106 mEq/L (98-107); Glucose 173 mg/dL (70-105); Osmolality,Calculated 298 (280-300); Potassium 4.2 mEq/L (3.5-5.1); Sodium 141 mEq/L (136-145); eGFR For African Americans > 60 (> 60); eGFR For Non-African Americans > 60 (> 60)
[2019-11-11] MEDS: MetroNIDAZOLE 500 MG/100 ML 500 MG/100 ML BAG IVPB SCH ×3 (03:19→20:35)
[2019-11-11] MEDS: *HR* Enoxaparin 80 MG/0.8 ML SYRINGE SQ SCH ×2 (05:09→17:57)
[2019-11-11] MEDS: Insulin LISPRO 300 UNITS/3 ML VIAL SQ SCH ×4 (09:42→20:34)
[2019-11-11] MEDS: Sennosides/Docusate Sodium TABLET PO SCH (09:44)
[2019-11-11] MEDS: lisinopriL 5 MG TABLET PO SCH (09:44)
[2019-11-11] MEDS: polyethylene glycoL 3350 17 GM POWD.PACK PO SCH ×2 (09:44→20:33)
[2019-11-11] MEDS: Carbidopa/Levodopa ER 50/200 TABLET PO SCH ×2 (09:45→20:33)
[2019-11-11] MEDS: levETIRAcetam 250 MG TABLET PO SCH ×2 (09:45→20:33)
[2019-11-11] MEDS: Divalproex (12 HR) 500 MG TABLET PO SCH ×2 (09:45→20:34)
[2019-11-11] MEDS: DilTIAZem CD (24hr) 180 MG CAP.ER.24H PO SCH (09:46)
[2019-11-11] MEDS: Aspirin Enteric Coated 81 MG Tablet PO SCH (09:46)
[2019-11-11] MEDS: Primidone 50 MG TABLET PO SCH (20:33)
[2019-11-12] MEDS: Cefepime HCl 2,000 MG in Water for inj. (sterile) 20 ML IVP SCH ×4 (00:28→23:39)
[2019-11-12 02:35] LABS: BUN/Creatinine Ratio 34 (6-26); Blood Urea Nitrogen 15 mg/dL (8-23); Calcium 8.5 mg/dL (8.6-10.3); Carbon Dioxide 29 mEq/L (23-29); Chloride 104 mEq/L (98-107); Glucose 163 mg/dL (70-105); Osmolality,Calculated 294 (280-300); Sodium 140 mEq/L (136-145); eGFR For African Americans > 60 (> 60); eGFR For Non-African Americans > 60 (> 60)
[2019-11-12] MEDS: *HR* Enoxaparin 80 MG/0.8 ML SYRINGE SQ SCH ×2 (04:31→17:33)
[2019-11-12] MEDS: MetroNIDAZOLE 500 MG/100 ML 500 MG/100 ML BAG IVPB SCH ×3 (04:31→20:03)
[2019-11-12] MEDS: Insulin LISPRO 300 UNITS/3 ML VIAL SQ SCH ×4 (08:45→21:12)
[2019-11-12] MEDS: Divalproex (12 HR) 500 MG TABLET PO SCH ×2 (08:46→20:06)
[2019-11-12] MEDS: DilTIAZem CD (24hr) 180 MG CAP.ER.24H PO SCH (08:46)
[2019-11-12] MEDS: Sennosides/Docusate Sodium TABLET PO SCH (08:46)
[2019-11-12] MEDS: Carbidopa/Levodopa ER 50/200 TABLET PO SCH ×2 (08:46→20:06)
[2019-11-12] MEDS: levETIRAcetam 250 MG TABLET PO SCH ×2 (08:47→20:06)
[2019-11-12] MEDS: Aspirin Enteric Coated 81 MG Tablet PO SCH (08:47)
[2019-11-12] MEDS: lisinopriL 5 MG TABLET PO SCH (08:47)
[2019-11-12] MEDS: polyethylene glycoL 3350 17 GM POWD.PACK PO SCH ×2 (08:47→20:03)
[2019-11-12] MEDS ORDERED: *HR* Warfarin 5 MG TABLET PO ONE (18:00)
[2019-11-12] MEDS ORDERED: Warfarin perPT PO PRN (18:00)
[2019-11-12] MEDS: Primidone 50 MG TABLET PO SCH (20:06)
[2019-11-13 02:39] LABS: INR 1.2; Prothrombin Time 13.6 Seconds (9.4-12.1)
[2019-11-13] MEDS: *HR* Enoxaparin 80 MG/0.8 ML SYRINGE SQ SCH ×2 (04:37→16:50)
[2019-11-13] MEDS: MetroNIDAZOLE 500 MG/100 ML 500 MG/100 ML BAG IVPB SCH (04:37)
[2019-11-13] MEDS: Insulin LISPRO 300 UNITS/3 ML VIAL SQ SCH ×3 (08:06→16:50)
[2019-11-13] MEDS: levETIRAcetam 250 MG TABLET PO SCH (08:15)
[2019-11-13] MEDS: lisinopriL 5 MG TABLET PO SCH (08:16)
[2019-11-13] MEDS: Aspirin Enteric Coated 81 MG Tablet PO SCH (08:16)
[2019-11-13] MEDS: Sennosides/Docusate Sodium TABLET PO SCH (08:16)
[2019-11-13] MEDS: polyethylene glycoL 3350 17 GM POWD.PACK PO SCH (08:16)
[2019-11-13] MEDS: Carbidopa/Levodopa ER 50/200 TABLET PO SCH (08:16)
[2019-11-13] MEDS: Divalproex (12 HR) 500 MG TABLET PO SCH (08:16)
[2019-11-13] MEDS: DilTIAZem CD (24hr) 180 MG CAP.ER.24H PO SCH (08:16)
[2019-11-13] MEDS: Cefepime HCl 2,000 MG in Water for inj. (sterile) 20 ML IVP SCH (08:27)
[2019-11-13 16:13] VITALS: BP 138/85
[2019-11-13] MEDS ORDERED: *HR* Warfarin 3 MG TABLET PO ONE (18:00)
== END 2019-11-13 17:06 | DRG 871 ==
LOC: 2NENU 14:47 → EMEROOARM 14:47 → SUATTDRO 19:54 → 2NENU 20:51 → SUATTDRO 11-03 14:59 → ICNU 11-04 16:05 → 2ANU 11-08 20:01 → 2NNU 11-09 19:26 → 2ANU 11-10 15:28
PROVIDERS: ADMIT Internal Medicine; ATTEND Internal Medicine